=== PATIENT | female | born 1975 | race Caucasian/White ===

== ENCOUNTER → 2017-12-03 17:13 | Outpatient (CLI) | payer BC, SELFPAY ==
--- NOTE | 2017-12-03 | CYSPIN_PTH ---
PATIENT: JACQUI CRAWFORD LOC: [facility] U#:[id number] AGE/SX: 49/F ROOM: RE12/03/[address]: ОЛЬГА Martinez : 1975 BED: DIS: SPEC #: [id number] RECD: 12/03/17 16:30 STATUS: JESSICA DESIRAE #: [id number] OSMAR: 12/03/17 00:[address]: Katie Chamorro NP DEPT: CYTOLOGY RECD BY: Wai Vazquez ENTERED: 12/04/17 09:15 SP TYPE: CYSPIN FL OTHR DR: Out of [facility] Doctor Tissues: Urine Procedures: Pap Stain (control) Special Stain Group II Cytospin Fluid HEADER OPERATION: Not noted PRE-OP DIAGNOSIS: UTI N39.0 TISSUE SUBMITTED: Urine for cytology DIAGNOSIS CYTOLOGY Urine for cytology (cytospin): Negative for malignant cells. AM:jeremiah 12/05/17 CYTOLOGY STUDY Slides are reviewed. CYTOLOGY GROSS Received is 40 ml of clear yellow fluid labeled with the patient's name and and designated per the requisition as urine. Submitted for cytology preparation. 12/04/17 TC:5 CPT: 61500
[2017-12-03 17:18] LABS: Cytology, Body Fluid / CSF SEE PATHOLOGY REPORT
== END ==
PROVIDERS: Visit Provider Nurse Practitioner Adult Health
DX: N39.0 Urinary tract infection, site not specified (principal)
CPT/HCPCS: 87077; 87086; 87088; 87186; 88108; 88313

== ENCOUNTER → 2017-12-07 16:18 | Outpatient (CLI) | payer BC, SELFPAY ==
--- NOTE | 2017-12-07 16:22 | CT_ITS ---
CT Abdomen And Pelvis WO/W Contrast INDICATION: HEMATURIA W/ HX KS COMPARISON: None TECHNIQUE: Axial CT imaging of the abdomen and pelvis without and with IV contrast. 1 mL of Isovue 300 were given intravenously. Radiation dose optimization technique applied. FINDINGS: Precontrast scan of the kidneys demonstrates no evidence of nephrolithiasis. Scattered splenic granulomas are noted. The gallbladder is surgically absent. Postcontrast scan demonstrates normal enhancement of liver and spleen. There is symmetric bilateral cortical renal enhancement. There is no evidence of hydronephrosis. Abdominal aorta and branching vessels are unremarkable. Bowel loops are nondistended. Appendix is normal. Delayed sequence demonstrates symmetric bilateral excretion with symmetric appearance of the ureters which are intermittently visualized. CT/CT Abd/Pelvis W/WO Contrast IMPRESSION: Negative CT urogram, no evidence of urolithiasis or renal mass. at 1956 Reported and signed by: Candi Santana MD Electronically Signed: Candi Santana MD at 18:55 EST Tel , Service support ,
== END ==
PROVIDERS: Visit Provider Nurse Practitioner Adult Health
DX: R10.9 Unspecified abdominal pain (principal); G89.29 Other chronic pain; R31.9 Hematuria, unspecified; Z87.442 Personal history of urinary calculi
CPT/HCPCS: 74178; Q9967

== ENCOUNTER → 2018-01-30 16:47 | Outpatient (CLI) | payer BC, SELFPAY ==
--- NOTE | 2018-01-30 16:51 | MRI_ITS ---
STUDY: MRI LUMBAR SPINE WITHOUT CONTRAST REASON FOR EXAM: Female, 42 years old. Low back pain TECHNIQUE: Standardized fat and water weighted pulse sequences were obtained in the sagittal and axial planes. COMPARISON: None FINDINGS: T12-L1: Normal endplates. Normal disc height, hydration and morphology. Normal bilateral facet joints. Normal central canal and bilateral lateral recesses. Normal bilateral intervertebral neural foramina. Normal lumbar lordosis. There is no substantial scoliosis. Normal conus medullaris that terminates at the T12-L1 level L1-2: Normal endplates. Normal disc height, hydration and morphology. Normal bilateral facet joints. Normal central canal and bilateral lateral recesses. Normal bilateral intervertebral neural foramina. L2-3: Normal endplates. Normal disc height, hydration and morphology. Normal bilateral facet joints. Normal central canal and bilateral lateral recesses. Normal bilateral intervertebral neural foramina. L3-4: Normal endplates. Normal disc height, hydration and morphology. Normal bilateral facet joints. Normal central canal and bilateral lateral recesses. Normal bilateral intervertebral neural foramina. L4-5: Normal endplates. Normal disc height, hydration and morphology. Normal bilateral facet joints. Normal central canal and bilateral lateral recesses. Normal bilateral intervertebral neural foramina. L5-S1: Normal endplates. Normal disc height, hydration and morphology. Normal bilateral facet joints. Normal central canal and bilateral lateral recesses. Normal bilateral intervertebral neural foramina. Normal visualized sacral ala. Normal visualized paraspinous soft tissue structures. MRI/Spine Lumbar (Routine) IMPRESSION: Normal unenhanced MR examination of the lumbar spine. Electronically Signed: Ulisses Knight MD at 21:26 EDT Tel , Service support ,
== END ==
PROVIDERS: Visit Provider Anesthesiology Pain Medicine
DX: M54.9 Dorsalgia, unspecified (principal); M79.606 Pain in leg, unspecified
CPT/HCPCS: 72148

== ENCOUNTER → 2019-03-31 13:45 | Outpatient (CLI) | payer BC, SELFPAY ==
[2019-03-31 14:57] LABS: Hematocrit 40.3 % (37-47); Hemoglobin 13.7 g/dl (12.0-15.0); Mean Corpuscular Hgb 29.3 pg (27.0-32.0); Mean Corpuscular Volume 86.3 fL (81-99); Mean Platelet Vol. 10.5 fl (6.2-12.0); Platelet Count 216 K/mm3 (150-450); RBC Distribution Width CV 13.5 % (11.6-14.6); RBC Distribution Width SD 41.8 fl (35.1-43.9); Red Blood Count 4.67 M/mm3 (4.2-5.4); White Blood Count 4.5 K/mm3 (4.4-11.0)
[2019-03-31 15:00] LABS: Scan Indicated on CBC? Y/N NO
[2019-03-31 15:13] LABS: Microalbumin,Random Urine 13.6 mg/L (NO RANGE EST.); Microalbumin:Creatinine Ratio 5.9 mg/g CRE (<30 mg/g CRE)
[2019-03-31 15:18] LABS: BUN 15 mg/dL (7-18); BUN/Creat Ratio 20.3 RATIO (10-20); Calcium,Total 9.3 mg/dL (8.5-10.1); Chloride 107 mmol/L (98-107); Creatinine, Serum 0.74 mg/dL (0.55-1.02); EST Glomerular Filtration Rate 92 mL/min (>60); Est Glom Filt Rate - Afr Amer 111 mL/min (>60); Glucose 82 mg/dL (74-106); Magnesium 2.1 mg/dL (1.6-2.6); Phosphorus 3.3 mg/dL (2.5-4.9); Potassium 4.3 mmol/L (3.5-5.1); Sodium Level 141 mmol/L (136-145); Uric Acid 5.6 mg/dL (2.6-6.0)
== END ==
PROVIDERS: Referring Provider Internal Medicine Nephrology; Visit Provider Internal Medicine Nephrology
DX: Q61.5 Medullary cystic kidney (principal); N20.0 Calculus of kidney
CPT/HCPCS: 36415; 80069; 82043; 82570; 83735; 84550; 85027

== ENCOUNTER → 2019-04-14 15:48 | Outpatient (CLI) | payer BC, SELFPAY ==
--- NOTE | 2019-04-14 15:57 | US_ITS ---
STUDY: RENAL ULTRASOUND - COMPLETE REASON FOR EXAM: Female, 43 years old. History renal stones and medullary sponge kidney TECHNIQUE: Ultrasound evaluation of the kidneys was performed with real-time and static banks-scale imaging. COMPARISON: CT abdomen 12/07/2017. FINDINGS: RIGHT KIDNEY: Normal location of the right kidney, which is normal in size. The right kidney measures 11.5 cm. There is a normal cortex of the right kidney. The renal cortex measures 1.4 cm. There is no right renal mass or cyst. There are no right renal calculi. There is no right hydronephrosis. DISTAL RIGHT URETER: There is non-visualization of the distal right ureter. There is no demonstrated right ureterovesical junction calculus. There is no visualization of the right ureteral jet. LEFT KIDNEY: Normal location of the left kidney, which is normal in size. The left kidney measures 11 cm. There is a normal cortex of the left kidney. The renal cortex measures 1.4 cm. There is no left renal mass or cyst. There are no left renal calculi. There is no left hydronephrosis. DISTAL LEFT URETER: There is non-visualization of the distal left ureter. There is no demonstrated left ureterovesical junction calculus. There is no visualization of the left ureteral jet. . BLADDER: The bladder is decompressed measuring approximately 28.7 mL. There are no visualized mass or wall thickening. US/Kidney and Bladder IMPRESSION: No renal calculi however ultrasound would be insensitive for small ureteral calculi compared to CT Decompressed bladder, no visualized mass or wall thickening No visualization of the ureteral jets of uncertain clinical significance Electronically Signed: Jr Delgado, at 17:43 EDT Tel , Service support ,
== END ==
PROVIDERS: Referring Provider Internal Medicine Nephrology; Visit Provider Internal Medicine Nephrology
DX: N20.0 Calculus of kidney (principal)
CPT/HCPCS: 76770

== ENCOUNTER → 2019-04-22 15:45 | Outpatient (CLI) | payer BC, SELFPAY | PROVIDERS: Referring Provider Internal Medicine Nephrology; Visit Provider Internal Medicine Nephrology | DX: R10.9 Unspecified abdominal pain (principal) | CPT/HCPCS: 87077; 87086; 87088; 87186 ==

== ENCOUNTER → 2019-09-05 15:40 | Outpatient (CLI) | payer BC, SELFPAY ==
[2019-09-05 15:00] VITALS: BMI 27.1
[2019-09-05 16:57] LABS: T4 Free Direct 0.88 ng/dL (0.76-1.46); Thyroid Stim Hormone (TSH) 5.35 uIU/mL (0.358-3.74)
[2019-09-08 16:23] LABS: Thyroid Peroxidase AB 275 IU/mL (0-34)
== END ==
PROVIDERS: Referring Provider Internal Medicine Endocrinology, Diabetes & Metabolism; Visit Provider Internal Medicine Endocrinology, Diabetes & Metabolism
DX: E04.1 Nontoxic single thyroid nodule (principal)
CPT/HCPCS: 36415; 84439; 84443; 86376

== ENCOUNTER → 2019-09-16 15:39 | Outpatient (CLI) | payer BC, SELFPAY ==
[2019-09-08 08:08] VITALS: BMI 27.1
--- NOTE | 2019-09-16 15:44 | US_ITS ---
STUDY: THYROID ULTRASOUND REASON FOR EXAM: Female, 43 years old. Nodules TECHNIQUE: Ultrasound evaluation of the thyroid was performed with real-time and static de jesus-scale imaging. COMPARISON: None. FINDINGS: RIGHT LOBE: The right lobe of the thyroid gland measures 5.1 x 1.8 x 1.9 cm. There is a heterogeneous echotexture. There are no demonstrated solid, cystic or complex lesions. LEFT LOBE: The left lobe of the thyroid gland measures 5.5 x 2.2 x 2.7 cm. There is a heterogeneous echotexture. There is a 3.0 x 2.2 x 2.5 cm hypoechoic nodule in the lower pole of the left thyroid lobe. It is increased in size since the previous study. Since it has increased in size, further evaluation with uptake study recommended ISTHMUS: The isthmus measures 0.5 cm. 2 subcentimeter hypoechoic isthmus nodule is noted also new since the previous study, larger measures 9 mm, smaller 6 mm. The regional lymph nodes are normal. US/Thyroid IMPRESSION: Thyroid gland remains enlarged and heterogeneous. Previous noted solid nodule in the lower pole of the left thyroid lobe is increased in size since the previous study and needs further evaluation with thyroid uptake study to determine if suspicious uptake activity is present. Additionally, there are new subcentimeter solid isthmus nodules No sonographic evidence of hyperemia Electronically Signed: Erasmo Basurto MD at 16:28 EST , Service support ,
== END ==
PROVIDERS: Referring Provider Internal Medicine Endocrinology, Diabetes & Metabolism; Visit Provider Internal Medicine Endocrinology, Diabetes & Metabolism
DX: E04.1 Nontoxic single thyroid nodule (principal)
CPT/HCPCS: 76536

== ENCOUNTER → 2020-01-06 15:48 | Outpatient (CLI) | payer BC, SELFPAY ==
[2019-09-08 08:08] VITALS: BMI 27.1
[2020-01-06 17:00] LABS: Hematocrit 36.3 % (37-47); Hemoglobin 12.4 g/dL (12.0-15.0); Mean Corp Hgb Conc 34.2 g/dL (32-36); Mean Corpuscular Hgb 29.7 pg (27.0-32.0); Mean Corpuscular Volume 86.8 fL (81-99); Mean Platelet Vol. 9.3 fl (6.2-12.0); Platelet Count 235 K/mm3 (150-450); Red Blood Count 4.18 M/mm3 (4.2-5.4); White Blood Count 7.5 K/mm3 (4.4-11.0)
[2020-01-06 17:07] LABS: Microalbumin,Random Urine 30.1 mg/L (NO RANGE EST.); Microalbumin:Creatinine Ratio 16.7 mg/g CRE (<30 mg/g CRE)
[2020-01-06 17:20] LABS: Albumin, Serum 4.1 g/dL (3.2-5.0); BUN 17 mg/dL (7-18); BUN/Creat Ratio 21.3 RATIO (10-20); Calcium,Total 8.8 mg/dL (8.5-10.1); Chloride 104 mmol/L (98-107); EST Glomerular Filtration Rate 83 mL/min (>60); Est Glom Filt Rate - Afr Amer 101 mL/min (>60); Glucose 95 mg/dL (74-106); Magnesium 2.1 mg/dL (1.6-2.6); Phosphorus 3.7 mg/dL (2.5-4.9); Potassium 3.3 mmol/L (3.5-5.1); Sodium Level 137 mmol/L (136-145)
[2020-01-06 17:21] LABS: Vitamin D,25 Hydroxy 18.4 ng/mL
[2020-01-07 08:25] LABS: PTHIN 44.7 pg/mL (18.4-80.1)
== END ==
LOC: LAB 15:51
PROVIDERS: Referring Provider Internal Medicine Nephrology; Visit Provider Internal Medicine Nephrology
DX: I10 Essential (primary) hypertension (principal)
CPT/HCPCS: 36415; 80069; 82043; 82306; 82570; 83735; 83970; 85027

== ENCOUNTER → 2020-02-12 | Outpatient (CLI) | payer BC, SELFPAY ==
--- NOTE | 2020-02-12 | ASPS_PTH ---
PATIENT: JACQUI CRAWFORD LOC: [facility] #:[id number] AGE/SX: 44/F ROOM: RE02/12/[address]: Dr. Jr Murphy MD : 1975 BED: DIS: 02/12/2020 SPEC #: [id number] RECD: 02/12/20 15:39 STATUS: JESSICA DESIRAE #: [id number] OSMAR: 02/12/20 00:[address]: Jr Murphy DEPT: CYTOLOGY RECD BY: Sina Flores Tissues: A - Thyroid gland, NOS B - Thyroid gland, NOS Procedures: Special Stain Group II Cytology Other HEADER OPERATION: Ultrasound-guided fine needle aspiration of left thyroid and isthmus PRE-OP DIAGNOSIS: Nodule of left lobe of thyroid gland TISSUE SUBMITTED: A - Left thyroid nodule aspiration slides x6, B - Isthmus aspiration slides x8 DIAGNOSIS CYTOLOGY A. Fine needle aspiration, left thyroid nodule (smears): Adequate for evaluation. Consistent with benign follicular nodule. B. Fine needle aspiration, isthmic nodule (smears): Polymorphous lymphocytes present. See comment. AM:jeremiah 02/16/20 COMMENT B. The nodule may represent a lymph node. Clinical correlation is suggested. Case has been reviewed in consultation with Dr. Blood who concurs with the above diagnosis. IDC:[facility] CYTOLOGY STUDY Slides are reviewed. CYTOLOGY GROSS A - Received are six smears labeled with the patient's name and designated per the requisition as left thyroid nodule. Submitted for staining. B - Received are eight smears labeled with the patient's name and designated per the requisition as isthmus. Submitted for staining. / jeremiah 02/13/20 TC:5 CPT: 73878 x2
[2020-02-12 08:21] VITALS: BMI 28.0
== END | disposition home or self-care (01) ==
LOC: LABSPEC 15:46
PROVIDERS: Referring Provider Surgery; Visit Provider Surgery
DX: E04.1 Nontoxic single thyroid nodule (principal)
CPT/HCPCS: 88161; 88313

== ENCOUNTER → 2020-02-19 12:04 | Outpatient (CLI) | payer BC, SELFPAY ==
[2020-02-12 08:21] VITALS: BMI 28.0
[2020-02-19 12:13] LABS: Mucous, Urine 0 SEEN /hpf (<or=2+)
[2020-02-19 13:06] LABS: Color, Urine Yellow (Yellow); Glucose, Dipstick Normal (Normal); Ketone-Dipstick Negative (Negative); Leukocyte Esterase-Dipstick Negative /ul (Negative); Nitrite-Dipstick Negative (Negative); Occult Blood-Urine 10 /ul (Negative); Protein-Dipstick 15 mg/dl (Negative); Urine Bilirubin Dipstick Negative (Negative); Urine Clarity Sl. Cloudy (Clear); Urine Urobilinogen Normal (Normal)
[2020-02-19 13:37] LABS: Bacteria 1+ /hpf (None Seen); Red Blood Cells-Urine 0-5 SEEN /hpf (0-5); Squamous Epithelial Cells - UA 0-5 SEEN /hpf (5-10); White Blood Cells 5-10 SEEN /hpf (0-5)
== END ==
PROVIDERS: Referring Provider Internal Medicine Nephrology; Visit Provider Internal Medicine Nephrology
DX: N39.0 Urinary tract infection, site not specified (principal)
CPT/HCPCS: 81001; 87077; 87086; 87088; 87186

== ENCOUNTER → 2020-11-17 15:59 | Outpatient (CLI) | payer OTHER, SELFPAY ==
[2020-02-12 08:21] VITALS: BMI 28.0
[2020-11-17 16:06] LABS: Mucous, Urine 0 SEEN /hpf (<or=2+)
[2020-11-17 17:24] LABS: Color, Urine Yellow (Yellow); Glucose, Dipstick Normal (Normal); Ketone-Dipstick 5 mg/dl (Negative); Leukocyte Esterase-Dipstick 100 /ul (Negative); Nitrite-Dipstick Positive (Negative); Occult Blood-Urine 50 /ul (Negative); Protein-Dipstick 15 mg/dl (Negative); Urine Bilirubin Dipstick Negative (Negative); Urine Clarity Sl. Cloudy (Clear); Urine Urobilinogen Normal (Normal)
[2020-11-17 17:30] LABS: Bacteria 2+ /hpf (None Seen); Red Blood Cells-Urine 0-5 SEEN /hpf (0-5); Squamous Epithelial Cells - UA 0-5 SEEN /hpf (5-10); White Blood Cells 10-25 SEEN /hpf (0-5)
== END ==
LOC: LAB.FUTURE 16:03 → LAB 11-18 06:22
PROVIDERS: Referring Provider Internal Medicine Nephrology; Visit Provider Internal Medicine Nephrology
DX: N39.0 Urinary tract infection, site not specified (principal)
CPT/HCPCS: 81001; 87077; 87086; 87088; 87186

== ENCOUNTER → 2020-12-23 15:45 | Outpatient (CLI) | payer OTHER, SELFPAY ==
[2020-02-12 08:21] VITALS: BMI 28.0
[2020-12-23 16:18] LABS: Hematocrit 36.2 % (37-47); Hemoglobin 11.9 g/dL (12.0-15.0); Mean Corp Hgb Conc 32.9 g/dL (32-36); Mean Corpuscular Hgb 29.5 pg (27.0-32.0); Mean Corpuscular Volume 89.6 fL (81-99); Mean Platelet Vol. 9.3 fl (6.2-12.0); Platelet Count 260 K/mm3 (150-450); RBC Distribution Width CV 12.9 % (11.6-14.6); RBC Distribution Width SD 42.2 fl (35.1-43.9); Red Blood Count 4.04 M/mm3 (4.2-5.4); White Blood Count 6.8 K/mm3 (4.4-11.0)
[2020-12-23 16:42] LABS: Microalbumin,Random Urine 17.2 mg/L (NO RANGE EST.); Microalbumin:Creatinine Ratio 12.1 mg/g CRE (<30 mg/g CRE)
[2020-12-23 17:12] LABS: Albumin, Serum 4.1 g/dL (3.2-5.0); BUN 20 mg/dL (7-18); BUN/Creat Ratio 24.2 RATIO (10-20); Calcium,Total 8.5 mg/dL (8.5-10.1); Chloride 105 mmol/L (98-107); Creatinine, Serum 0.83 mg/dL (0.55-1.02); EST Glomerular Filtration Rate 80 mL/min (>60); Est Glom Filt Rate - Afr Amer 96 mL/min (>60); Glucose 94 mg/dL (74-106); Phosphorus 3.5 mg/dL (2.5-4.9); Potassium 3.2 mmol/L (3.5-5.1); Sodium Level 137 mmol/L (136-145)
== END ==
LOC: LAB 15:46
PROVIDERS: Visit Provider Internal Medicine Nephrology
DX: I10 Essential (primary) hypertension (principal); E87.6 Hypokalemia
CPT/HCPCS: 36415; 80069; 82043; 82570; 83735; 85027

== ENCOUNTER 2021-11-17 12:48 | Outpatient (CLI) | payer BC, SELFPAY ==
[2021-11-17 13:27] LABS: Protein, Urine (Random) 10.1 mg/dL (<11.9); Protein:Creat Ratio 64 mg/g CRE (0-200)
== END 2021-11-17 23:59 | disposition short-term general hospital (02) ==
LOC: LAB 12:52
PROVIDERS: Visit Provider Internal Medicine Nephrology
DX: I10 Essential (primary) hypertension (principal)
CPT/HCPCS: 82570; 84156

== ENCOUNTER → 2024-01-04 | Outpatient (CLI) | payer BC, SELFPAY ==
[2024-01-04 16:29] LABS: Erythrocyte Sedimentation Rate 10 mm/hr (0-30)
[2024-01-04 17:00] LABS: CRP 6.39 mg/L (0.0-3.0); Rheumatoid Factor < 10.0 IU/mL (<15); Uric Acid 6.1 mg/dL (2.6-6.0)
[2024-01-04 17:05] LABS: Vitamin D,25 Hydroxy 8.2 ng/mL
[2024-01-07 13:07] LABS: CCP IgG Antibodies 0 units (0-19)
[2024-01-07 14:08] LABS: ANTINUCLEAR ANTIBODIES DIRECT Negative (Negative)
== END | disposition home or self-care (01) ==
LOC: LAB 15:43
PROVIDERS: Referring Provider Podiatrist; Visit Provider Podiatrist
DX: M72.2 Plantar fascial fibromatosis (principal); M19.071 Primary osteoarthritis, right ankle and foot; M19.072 Primary osteoarthritis, left ankle and foot
CPT/HCPCS: 36415; 82306; 84550; 85652; 86038; 86140; 86200; 86431